=== PATIENT | male | born 1980 | race Caucasian/White ===

== ENCOUNTER 2017-12-17 08:16 | Emergency (ER) | payer SELFPAY | END 2017-12-17 08:41 | disposition home or self-care (01) | LOC: SCSER 08:16 | DX: L03.115 Cellulitis of right lower limb (principal); L03.116 Cellulitis of left lower limb; L02.416 Cutaneous abscess of left lower limb; L02.415 Cutaneous abscess of right lower limb; F17.210 Nicotine dependence, cigarettes, uncomplicated; Z71.6 Tobacco abuse counseling | CPT/HCPCS: 99406 ==

== ENCOUNTER 2017-12-19 09:13 | Emergency (ER) | payer SELFPAY ==
[2017-12-19] MEDS ORDERED: Lidocaine 1% 20 ML MDV ONE (09:50)
== END 2017-12-19 10:30 | disposition left against medical advice (07) ==
LOC: SCSER 09:13
DX: A49.02 Methicillin resistant Staphylococcus aureus infection, unspecified site (principal); F17.210 Nicotine dependence, cigarettes, uncomplicated; Z79.891 Long term (current) use of opiate analgesic
CPT/HCPCS: 10060; J2001